=== PATIENT | male | born 1980 | race Hispanic/Latino ===

== ENCOUNTER 2017-08-02 21:09 | Emergency (ER) | payer SELFPAY ==
[2017-08-02 21:27] LABS: #Basophils 0.1 thou/uL (0.0-0.2); #Eosinphils 0.2 thou/uL (0.0-0.7); #Lymphocytes 2.9 thou/uL (1.20-3.40); #Monocytes 0.8 thou/uL (0.11-0.59); #Neutrophils 6.1 thou/uL (1.40-6.50); %Basophils 0.5 % (0.0-1.0); %Lymphocytes 28.8 % (21.0-51.0); %Monocytes 8.3 % (0.0-10.0); %Neutrophils 60.4 % (42.0-75.0); Hemoglobin 15.4 g/dL (14.0-18.0); Mean Corpuscular HGB CONC 34.7 g/dL (32.0-36.0); Mean Corpuscular Hemoglobin 31.6 pg (27.0-31.0); Mean Corpuscular Volume 91.1 fl (80.0-94.0); Mean Platelet Volume 8.3 fL (7.4-10.4); Platelet Count 199 thou/uL (130-400); RBC Distribution Width 11.2 % (11.5-14.5); Red Blood Cell (RBC) Count 4.87 mill/uL (4.70-6.10); White Blood Cell (WBC) Count 10.1 thou/uL (4.8-10.8)
--- NOTE | 2017-08-02 21:43 | RAD ---
PORTABLE CHEST: HISTORY: Chest pain. FINDINGS: The lung gupta are clear. Vascular markings are normal. Heart and mediastinum are unremarkable. IMPRESSION: Unremarkable chest. POS: [facility]
[2017-08-02 21:49] LABS: ALT (SGPT) 47 U/L (8-55); AST (SGOT) 33 U/L (5-34); Albumin 4.7 g/dL (3.5-5.0); Alkaline Phosphatase 96 U/L (40-150); Anion Gap 11 mmol/L (10-20); BUN (Urea Nitrogen) 12 mg/dL (8.9-20.6); Bilirubin, Total 0.5 mg/dL (0.2-1.2); Calc. Creatinine Clearance 0 mL/min (70-130); Calcium 9.9 mg/dL (7.8-10.44); Carbon Dioxide 28 mmol/L (22-29); Chloride 100 mmol/L (98-107); Estimated GFR-MDRD Greater than 90; Globulin 3.3 g/dL (2.4-3.5); Glucose 131 mg/dL (70-105); Potassium 3.4 mmol/L (3.5-5.1); Sodium 136 mmol/L (136-145)
[2017-08-02 21:54] LABS: CKMB 0.8 ng/mL (0-6.6); Troponin I Less than 0.010 ng/mL (< 0.028)
[2017-08-02] MEDS ORDERED: Lorazepam 2 MG/ML VIAL ONE (22:38)
== END 2017-08-02 23:30 | disposition home or self-care (01) ==
LOC: ERS 21:09
DX: R07.9 Chest pain, unspecified (principal); F10.239 Alcohol dependence with withdrawal, unspecified; E78.5 Hyperlipidemia, unspecified; F17.210 Nicotine dependence, cigarettes, uncomplicated
CPT/HCPCS: 71045; 80053; 82553; 84484; 85025; 93005; 94760; J2060

== ENCOUNTER 2020-01-09 04:53 | Emergency (ER) | payer SELFPAY ==
[2020-01-09] MEDS ORDERED: Mag-Al 1200 mg/1200 mg/30 ML UDCUP ONE (05:11)
== END 2020-01-09 05:26 | disposition home or self-care (01) ==
LOC: ERS 04:53
DX: T18.128A Food in esophagus causing other injury, initial encounter (principal); E78.5 Hyperlipidemia, unspecified; F17.210 Nicotine dependence, cigarettes, uncomplicated
CPT/HCPCS: 99283

== ENCOUNTER 2020-01-27 19:11 | Emergency (ER) | payer SELFPAY ==
[~2020-01-27 19:11] MED LIST: Iopamidol-370 76% 500 ML 1 ML ONE
[2020-01-27] MEDS ORDERED: Mag-Al 1200 mg/1200 mg/30 ML UDCUP ONE (21:00)
[2020-01-27] MEDS ORDERED: Lidocaine Viscous Sol 2% 15 ml UD Cup ONE (21:00)
[2020-01-27 22:58] LABS: SARS-CoV-2 NAA Rapid Test Not Detected (NotDetected)
[2020-01-27 23:10] LABS: #Basophils 0.1 thou/uL (0.0-0.2); #Eosinphils 0.1 thou/uL (0.0-0.7); #Lymphocytes 1.7 thou/uL (1.20-3.40); #Monocytes 0.6 thou/uL (0.11-0.59); #Neutrophils 7.3 thou/uL (1.40-6.50); %Basophils 0.7 % (0.0-1.0); %Eosinophils 1.5 % (0.0-10.0); %Monocytes 6.4 % (0.0-10.0); %Neutrophils 74.5 % (42.0-75.0); Hemoglobin 13.9 g/dL (14.0-18.0); Mean Corpuscular HGB CONC 34.5 g/dL (32.0-36.0); Mean Corpuscular Hemoglobin 31.9 pg (27.0-31.0); Mean Corpuscular Volume 92.4 fL (78.0-98.0); Mean Platelet Volume 8.3 fL (7.4-10.4); Platelet Count 160 thou/uL (130-400); Red Blood Cell (RBC) Count 4.37 mill/uL (4.70-6.10); White Blood Cell (WBC) Count 9.8 thou/uL (4.8-10.8)
--- NOTE | 2020-01-27 23:25 | CON ---
DATE OF CONSULTATION: 01/27/2020 REASON FOR CONSULTATION: Foreign body sensation in throat. HISTORY OF PRESENT ILLNESS: Juan Antonio Reza is a 39-year-old man, who presented to the emergency department this evening with recurrent sensation of foreign body in the throat. He says he was having some cocktail shrimp about 3 weeks ago when he felt that he accidentally ingested some of the shell. He tried to cough it out, but ever since then had a sensation of something stuck way up high in the upper neck. He actually presented to the emergency department where the sensation resolved on its own. He did well for a couple weeks, then about a week ago, felt the sensation return all of a sudden. This lasted for several hours and then resolved again. He has done well over the past week, but then about 5 p.m. this evening, completely randomly he started having that sensation again as if something is scratching the back of his throat. He keeps trying to clear his throat to relieve this sensation but cannot quite do it and so he keeps spitting into a bag, but he is not really regurgitating. He has been able to eat and drink just fine this whole time. He is tolerating his secretions and he is tolerating drinks of water throughout our conversation, he does not have any fever. No other symptoms. REVIEW OF SYSTEMS: Full review of systems including constitutional, head, eyes, ears, nose, throat, GI, , cardiovascular, respiratory, musculoskeletal, neurologic systems is negative except as noted in the HPI. PAST MEDICAL HISTORY: Hyperlipidemia, tobacco abuse, heavy alcohol use. ALLERGIES: NO KNOWN DRUG ALLERGIES. OUTPATIENT MEDICATIONS: None. SOCIAL HISTORY: The patient will have about a six pack of beer daily. He smokes cigarettes. No drug use. PHYSICAL EXAMINATION: GENERAL: A 39-year-old man, sitting up in chair comfortably, in no distress. VITAL SIGNS: Blood pressure is 140/72. SKIN: No jaundice, no rashes were palpable. EYES: No scleral icterus. Extraocular movements intact. ENT: I am unable to see any foreign body in the oropharynx, but he is at least a Mallampati 3, so I am not able to get a very good look at the retropharynx. LYMPHATICS: No submandibular or supraclavicular lymphadenopathy. THYROID: Nontender to palpation, started just go back to ENT and just say . HEART: Regular rate and rhythm. LUNGS: Clear to auscultation bilaterally. ABDOMEN: Soft, nontender to palpation. EXTREMITIES: No peripheral edema. VESSELS: Radial pulses 2+ bilaterally. NEUROLOGIC: Cranial nerves 2-12 intact bilaterally. No focal deficits. ASSESSMENT/PLAN: Foreign body sensation in the throat. In speaking with the patient, I really do not get the sensation that he has any esophageal foreign body. This sensation is all very high in the neck. He is tolerating liquid intake just fine. He is bringing up phlegm from constant clearing of his throat, but he is not regurgitating any liquid. I think if there is any issue with retained food particles, it would be higher up in the retropharyngeal area. I have discussed the case with Dr. Thayer. We are not going to plan on any EGD. My understanding is that he is going to get CT imaging of the neck, rule out retropharyngeal abscess, which would be a good idea. Even if the CT is negative, I think the patient would benefit more from ENT examination than upper endoscopy. As he is tolerating liquid intake just fine, if that evaluation were all negative, but symptoms persist, the patient could be sent to follow up with us in the outpatient GI clinic for EGD on an outpatient basis. I have discussed the case with Dr. Thayer. Please call back, if GI can be of any further assistance. Job ID: [id number]
[2020-01-27 23:31] LABS: ALT (SGPT) 22 U/L (8-55); AST (SGOT) 22 U/L (5-34); Albumin 3.9 g/dL (3.5-5.0); Alkaline Phosphatase 76 U/L (40-110); Anion Gap 12 mmol/L (10-20); BUN (Urea Nitrogen) 10 mg/dL (8.9-20.6); Bilirubin, Total 0.4 mg/dL (0.2-1.2); Calc. Creatinine Clearance 0 mL/min (70-130); Calcium 8.4 mg/dL (7.8-10.44); Carbon Dioxide 27 mmol/L (22-29); Chloride 100 mmol/L (98-107); Estimated GFR-MDRD Greater than 90; Globulin 2.8 g/dL (2.4-3.5); Glucose 97 mg/dL (70-105); Potassium 3.9 mmol/L (3.5-5.1); Protein, Total 6.7 g/dL (6.0-8.3); Sodium 135 mmol/L (136-145)
--- NOTE | 2020-01-27 23:33 | CT ---
CT SOFT TISSUE NECK WITH IV CONTRAST: Date: 01/27/2020 PROVIDED CLINICAL HISTORY: Foreign body sensation in throat, dysphagia. FINDINGS: The epiglottis and aryepiglottic folds appear normal. There is no prevertebral/retropharyngeal fluid density present. The palatine tonsils appear symmetric in size and normal CT density. There is no eff acement of the parapharyngeal fat. There is no evidence for regional lymph node enlargement. The visualized globes and other orbital con tents appear normal. The parotid and submandibular glands appear normal. The regional major vascular structures appear unremarkable. The osseous structures demonstrate no concerning lytic or blastic lesions. IMPRESSION: No evidence for an acute process. POS: [facility]
[2020-01-27] MEDS ORDERED: Dexamethasone 10 MG/ML VIAL ONE (23:41)
== END 2020-01-28 00:12 | disposition home or self-care (01) ==
LOC: ERS 19:11
DX: R13.10 Dysphagia, unspecified (principal); E78.5 Hyperlipidemia, unspecified; F17.210 Nicotine dependence, cigarettes, uncomplicated; Z20.828 Contact with and (suspected) exposure to other viral communicable diseases
CPT/HCPCS: 36415; 70491; 80053; 85025; 96374; J1100; J1610; Q9967; U0002